=== PATIENT | male | born 1990 | race Caucasian/White ===

== ENCOUNTER 2016-05-06 03:11 | Emergency (ER) | payer OTHER ==
[~2016-05-06] VITALS: Ht 167.6 cm; Wt 54.4 kg
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
[2016-05-06] MEDS ORDERED: ZOFRAN ODT4 M1 SL (05:27)
[2016-05-06 05:35] VITALS: BP 162/78
== END 2016-05-06 05:35 ==
LOC: ERH 03:11
DX: K52.9 Noninfective gastroenteritis and colitis, unspecified (principal)
CPT/HCPCS: 96365; 96375